=== PATIENT | male | born 1955 | race Caucasian/White ===

== ENCOUNTER 2019-09-09 08:10 | Emergency (ER) | payer BC, OTHER ==
[2019-09-09 08:33] VITALS: BP 122/80
--- NOTE | 2019-09-09 08:55 | UC ---
FLU HPI - HPI Summary HPI Summary: 64-year-old male with history of ulcerative colitis presents with 4-5 day history of nasal congestion, sinus pressure, postnasal drip, mild sore throat, chest congestion, and occasional productive cough. Denies fever, chills, myalgias, ear pain, dysphagia, chest pain, palpitations, shortness of breath, abdominal pain, nausea, or vomiting. - History of Current Complaint Chief Complaint: UCRespiratory Stated Complaint: CHEST/SINUS CONGESTION,COUGH Time Seen by Provider: 09/09/19 08:29 Hx Obtained From: Patient Pain Intensity: 0 - Allergy/Home Medications Allergies/Adverse Reactions: Allergies Allergy/AdvReac Type Severity Reaction Status Date / Time Penicillins Allergy Unknown Verified 09/09/19 08:27 Reaction Details diltiazem [From Cardizem] AdvReac Itching Verified 09/09/19 08:27 Home Medications: Home Medications Arginine HCl [l-Arginine Maximum Streng] 100 mg PO DAILY 09/09/19 [History Confirmed 09/09/19] Avanafil [Stendra] 200 mg PO DAILY 09/09/19 [History Confirmed 09/09/19] Golimumab [Simponi] 50 mg SC MONTHLY 09/09/19 [History Confirmed 09/09/19] Lactobacillus Combo No.10 [Probiotic] 1 each PO DAILY 09/09/19 [History Confirmed 09/09/19] Mercaptopurine TAB* [Purinethol TAB*] 125 mg PO DAILY 09/09/19 [History Confirmed 09/09/19] Mesalamine (NF) [Lialda (NF)] 2.4 gm PO DAILY 09/09/19 [History Confirmed ] [place]-3/Dha/Epa/Fish Oil [Fish Oil 1,000 mg Softgel] 1,000 mg PO DAILY 09/09/19 [History Confirmed 09/09/19] Omeprazole 1 dose PO DAILY 09/09/19 [History Confirmed 09/09/19] Prasterone (Dhea) [Pro Hormone Dhea Antioxid] 25 mg PO DAILY 09/09/19 [History Confirmed 09/09/19] Rosuvastatin Calcium 1 dose PO DAILY 09/09/19 [History Confirmed 09/09/19] Zinc 30 mg PO DAILY 09/09/19 [History Confirmed 09/09/19] PMH/Surg Hx/FS Hx/Imm Hx Endocrine History: Dyslipidemia Cardiovascular History: Atrial Fibrillation GI/ History: Gastroesophageal Reflux, Other - Ulcerative colitis - Surgical History Surgical History: Yes Surgery Procedure, Year, and Place: sinus polyps. hernia repair as child - Family History Known Family History: Positive: Non-Contributory - Social History Occupation: Employed Full-time Lives: With Family Alcohol Use: Rare Substance Use Type: None Smoking Status (MU): Former Smoker When Did the Patient Quit Smoking/Using Tobacco: 2000 Review of Systems All Other Systems Reviewed And Are Negative: Yes Constitutional: Negative: Fever, Chills Eyes: Negative: Drainage, Eye Redness ENT: Positive: Sore Throat, Nasal Discharge, Sinus Congestion, Sinus Pain/ Tenderness. Negative: Ear Ache Respiratory: Positive: Cough. Negative: Shortness Of Breath Cardiovascular: Negative: Palpitations, Chest Pain Gastrointestinal: Negative: Abdominal Pain, Vomiting, Nausea Genitourinary: Positive: Negative Musculoskeletal: Negative: Myalgia Neurological: Positive: Negative Is Patient Immunocompromised?: Yes Physical Exam - Summary Physical Exam Summary: GENERAL APPEARANCE: Well developed, well nourished, alert and cooperative, and appears to be in no acute distress. EYES: Conjunctiva clear. No drainage. EARS: External auditory canals and tympanic membranes clear, hearing grossly intact. NOSE: Moderate nasal congestion. No nasal discharge. THROAT: Pharyngeal cobblestoning with post-nasal drip. Tonsils surgically absent. Uvula midline. NECK: Neck supple, non-tender without lymphadenopathy. CARDIAC: Normal S1 and S2. No S3, S4 or murmurs. Rhythm is regular. There is no peripheral edema, cyanosis or pallor. Extremities are warm and well perfused. Capillary refill is less than 2 seconds. Peripheral pulses intact. LUNGS: Clear to auscultation without rales, rhonchi, wheezing or diminished breath sounds. ABDOMEN: Positive bowel sounds. Soft, nondistended, nontender. No guarding or rebound. No masses or hepatosplenomegally. MUSKULOSKELETAL: ROM intact to all extremities. No joint erythema or tenderness. Normal muscular development. Normal gait. SKIN: Skin normal color, texture and turgor with no lesions or eruptions. Triage Information Reviewed: Yes Vital Signs: Initial Vital Signs Temp 99.0 F 09/09/19 08:25 Pulse 80 09/09/19 08:25 Resp 16 09/09/19 08:25 BP 122/80 09/09/19 08:25 Pulse Ox 96 09/09/19 08:25 Vital Signs Reviewed: Yes Flu Course/Dx - Course Course Of Treatment: 64-year-old male with history of ulcerative colitis presents with 4-5 day history of nasal congestion, sinus pressure, postnasal drip, mild sore throat, chest congestion, and occasional productive cough. Denies fever, chills, myalgias, ear pain, dysphagia, chest pain, palpitations, shortness of breath, abdominal pain, nausea, or vomiting. Afebrile. Vital signs stable. Patient had moderate nasal congestion, pharyngeal cobblestoning with postnasal drip, surgically absent tonsils, clear bilateral breath sounds, and otherwise unremarkable exam. Discussed with the patient that his symptoms are consistent with an upper respiratory infection that was likely viral in origin however with him being on immunosuppressive therapy for his ulcerative colitis he is at increased risk for secondary bacterial infection and we have decided to go ahead and start him on an antibiotic at this time. He is to take doxycycline 100 mg twice a day 7 days as well as symptomatic treatment for his URI. He is to follow-up with his primary care provider in 5-7 days if symptoms are not improving. Anticipatory guidance and warning symptoms are reviewed patient. Verbalizes understanding and agrees with plan of care. - Differential Dx/Diagnosis Differential Diagnosis/HQI/PQRI: Bronchitis, Influenza, Pneumonia, Upper Respiratory Infection Provider Diagnosis: Upper respiratory infection with cough and congestion Discharge ED - Sign-Out/Discharge Documenting (check all that apply): Patient Departure All imaging exams completed and their final reports reviewed: No Studies - Discharge Plan Condition: Stable Disposition: HOME Prescriptions: Benzonatate CAP* [Tessalon 100 MG CAP*] 100 mg PO TID PRN #21 cap PRN Reason: Cough Doxycycline Hyclate 100 mg PO BID 7 Days #14 tablet Patient Education Materials: Upper Respiratory Infection (ED) Referrals: No Primary Care Phys,NOPCP [Primary Care Provider] - Additional Instructions: Your history and exam are consistent with an upper respiratory infection (URI). As we discussed, URI's are very often caused by a viral infection however with you being on immune suppressive medications for your ulcerative colitis there is a concern for a possible secondary bacterial infection therefore we will start you on an antibiotic. Start doxycycline 100 mg twice a day for 7 days. Do not drink milk, eat milk products, or takes supplements containing calcium for at least 2 hours before after taking this medication as the calcium can affect the absorption. This antibiotic will also make you more sensitive to the sunlight therefore it is recommended that you try to avoid sun exposure while taking. If you must be outdoors take appropriate precautions including sunscreen, long sleeves, and hat. Drink plenty of fluids to avoid dehydration especially if you are running any fever. Use a saline rinse kit such as Neti Pot or NeilMed at least twice a day to help thin secretions and promote drainage of the sinuses. Use over the counter fluticasone (Flonase) nasal spray 2 sprays each nostril once daily. Take Tessalon Perles 1 capsule every 8 hours as needed for cough. Take over the counter acetaminophen (Tylenol) or ibuprofen (Advil, Motrin) according to directions as needed for pain or fever. Use salt water gargles several times a day if you have a sore throat. You may also use Chloraseptic spray or Cepacol lonzenges according to directions which contain a numbing medication and can provide some temporary relief from your sore throat. Follow up with your primary care provider in 5-7 days if symptoms persist. Seek immediate medical attention in the emergency room if you have fever greater than 100.5 F despite taking acetaminophen or ibuprofen, have chest pain , difficulty breathing, are unable to swallow, or have any worsening of symptoms. - Billing Disposition and Condition Condition: STABLE Disposition: Home
== END 2019-09-09 09:11 | disposition home or self-care (01) ==
LOC: UCCORT 08:10
DX: J06.9 Acute upper respiratory infection, unspecified (principal); R05 Cough; J34.89 Other specified disorders of nose and nasal sinuses; I48.91 Unspecified atrial fibrillation; K21.9 Gastro-esophageal reflux disease without esophagitis; E78.5 Hyperlipidemia, unspecified; Z88.0 Allergy status to penicillin; Z88.8 Allergy status to other drugs, medicaments and biological substances; Z79.899 Other long term (current) drug therapy; Z87.891 Personal history of nicotine dependence
CPT/HCPCS: 99212; G0463